=== PATIENT | male | born 1945 | race Caucasian/White ===

== ENCOUNTER 2017-09-06 04:40 | Emergency (ER) | payer OTHER, MEDICARE, SELFPAY ==
[2017-09-06 04:41] VITALS: BP 191/87; PULSE 59; RESP 16; TEMP 36.4; O2SAT 100; BMI 27.1
[2017-09-06] MEDS: cloNIDine HCl 0.1 MG Tablet PO (05:00)
[2017-09-06] MEDS: LORazepam 1 MG Tablet PO (05:00)
[2017-09-06 05:04] VITALS: BP 157/75
[2017-09-06 05:26] VITALS: BP 145/66
--- NOTE | 2017-09-06 05:41 | ED.VISSUMM ---
- ER Visit Summary Date of Service: 09/06/17 Chief Complaint: [] Anxiety History of Present Illness: The patient is a 72 M [] complaining of anxiety/panic attack. Patient reports this is his third or fourth panic attack in the last 18 years. He reports he is a [place] . He reports taking hydroxyzine with mild relief. He is here for anxiolysis. He denies chest pain or shortness of breath. No other complaints at this time. Physical Examination: [] Cardiovascular exam is regular rate and rhythm. Lungs are clear to auscultation. Abdomen is soft and nontender. Test Results: [] None. Emergency Department Course and Treatment: [] Patient given 1 mg orally of Ativan and 0.1 mg orally of clonidine for elevated blood pressure. On serial exam approximately 1 hour later patient felt improvement of symptoms and has improved blood pressure. Patient was amenable to discharge. Treatment Plan: [] Follow-up with PCP. Disposition: [] Discharge, stable. Impression: [] Anxiety attack This note was generated with [employer] dictation software. It may contain incorrect words, spelling, and punctuation that were not noted in review of the chart prior to signing ED Disposition - Plan for ED Patient: Disposition: Home or Assisted Living Chief Complaint: Anxiety Instructions: ED Panic Attack Referrals: Jos Moreno III, MD [Primary Care Provider] -
--- NOTE | 2017-09-06 05:44 | ED.DCSUM_ITS ---
- ER Visit Summary Date of Service: 09/06/17 Chief Complaint: [] Anxiety History of Present Illness: The patient is a 72 M [] complaining of anxiety/ panic attack. Patient reports this is his third or fourth panic attack in the last 18 years. He reports he is a [place] . He reports taking hydroxyzine with mild relief. He is here for anxiolysis. He denies chest pain or shortness of breath. No other complaints at this time. Physical Examination: [] Cardiovascular exam is regular rate and rhythm. Lungs are clear to auscultation. Abdomen is soft and nontender. Test Results: [] None. Emergency Department Course and Treatment: [] Patient given 1 mg orally of Ativan and 0.1 mg orally of clonidine for elevated blood pressure. On serial exam approximately 1 hour later patient felt improvement of symptoms and has improved blood pressure. Patient was amenable to discharge. Treatment Plan: [] Follow-up with PCP. Disposition: [] Discharge, stable. Impression: [] Anxiety attack This note was generated with [employer] dictation software. It may contain incorrect words, spelling, and punctuation that were not noted in review of the chart prior to signing ED Disposition - Plan for ED Patient: Disposition: Home or Assisted Living Chief Complaint: Anxiety Instructions: ED Panic Attack Referrals: Jos Moreno III, MD [Primary Care Provider] -
[2017-09-06 06:07] VITALS: BP 126/81; PULSE 76; RESP 16; O2SAT 97
== END 2017-09-06 06:22 | disposition home or self-care (01) ==
PROVIDERS: Emergency Provider Emergency Medicine; Family Provider Family Medicine; PCP Family Medicine
DX: F41.0 Panic disorder [episodic paroxysmal anxiety] (principal); I10 Essential (primary) hypertension; E11.9 Type 2 diabetes mellitus without complications
CPT/HCPCS: 99283

== ENCOUNTER 2017-09-17 06:18 | Day surgery (SDC) | payer MEDICARE, SELFPAY ==
[2017-09-17] VITALS (7 sets, daily range): BP systolic 88–164; BP diastolic 44–84; PULSE 70–81; RESP 16; TEMP 36.4–36.9; O2SAT 96–99; BMI 26.6
[2017-09-17 07:10] LABS: Bedside Glucose 115 mg/dL (70-110)
--- NOTE | 2017-09-17 07:47 | HP.PCM_ITS ---
Problem List (1) Encounter for screening for malignant neoplasm of colon Status: Acute History of Present Illness Date of Admission: 09/17/17 The patient is a 72 year old M who presents for screening colonoscopy. Past Medical History Allergies cephalexin monohydrate [From Keflex] Allergy (Verified 09/15/17 13:34) Unknown Home Medications: Ambulatory Orders Medication Instructions Recorded Allopurinol [Zyloprim] 150 mg PO DAILY 03/15/15 Aspirin [Aspirin, Baby] 81 mg PO DAILY@0800 03/15/15 Hydrochlorothiazide [Hctz] 12.5 mg PO DAILY 03/15/15 Hydroxyzine HCl 25 mg PO BID PRN 03/15/15 Lisinopril [Zestril] 40 mg PO DAILY 03/15/15 Lorazepam [Ativan] 0.5 mg PO TID PRN PRN #20 tablet 03/15/15 Metformin HCl [Glucophage] 500 mg PO BIDCM 03/15/15 [place]-3 Fatty Acids/Fish Oil [Fish 1 each PO DAILY 03/15/15 Oil 1,000 mg Capsule] Omeprazole [Prilosec] 20 mg PO DAILY 03/15/15 Amlodipine [Norvasc] 5 mg PO DAILY 09/15/17 Doxazosin Mesylate [Cardura] 2 mg PO QHS 09/15/17 Pravastatin Sodium 80 mg PO QHS 09/15/17 Smoking Status: Former smoker - *Family History Maternal History Items: No pertinent history Review of Systems Gastrointestinal: Denies: Abdominal Pain, Constipation, Diarrhea, Hematemesis, Nausea, Melena, Vomiting VTE Information - Inpt Only VTE Present on Admission: No VTE Mechan Device Prophylaxis: None VTE Pharm Prophylaxis ordered?: No Reason prophylaxis not ordered:: Treatment Not Indicated Patient Problems: Active and Suspected Problems Encounter for screening for malignant neoplasm of colon (Acute) - Physical Exam Lungs: Clear to auscultation Cardiovascular: Regular rate, Regular Rhythm, No murmurs Abdomen: Bowel Sounds Present, Soft, Non Tender, Non-Distended Vital Signs Temp Pulse Resp BP Pulse Ox 97.5 F L 81 16 164/84 H 96 09/17/17 06:52 09/17/17 06:52 09/17/17 06:52 09/17/17 06:52 09/17/17 06:52 Oxygen Delivery Method Room Air Weight: 160 lb 7.944 oz Body Mass Index (BMI) 26.6 POC Glucose 09/17/17 07:02 POC Glucose 115 H Assessment/Plan Active and Suspected Problems Encounter for screening for malignant neoplasm of colon (Acute) I plan is perform a colonoscopy.
--- NOTE | 2017-09-17 07:47 | PCM.OPRPT ---
Problem List (1) Encounter for screening for malignant neoplasm of colon Status: Acute Report of Operation Date of Procedure: 09/17/17 Pre-Operative Diagnosis: Z12.11 screening colonoscopy Post-Operative Diagnosis: Same Surgery/Procedure Performed:: 54518 colonoscopy Type of Anesthesia:: MAC Anesthesiologist: Ed Moore Description of Procedure: Patient was brought into the endoscopy suite placed in the left lateral decubitus position. The scope was inserted into the rectum.The scope was directed through the sigmoid colon, descending colon, transverse colon, ascending colon, to the cecum. Operative findings: #1 cecum: Normal appearance no mass lesions normal ileocecal valve. 2. Ascending colon: Normal appearance no mass lesions. 3. Transverse colon: Normal appearance no mass lesions. 4. Descending colon: Normal appearance no mass lesions. 5. Sigmoid colon: Normal appearance no mass lesion minimal diverticular disease identified 6. Rectum: Normal appearance no mass lesion retroflexion did not reveal any hemorrhoids. Scope was withdrawn digital rectal exam was performed showing a smooth prostate with no nodules. Patient will need to have another colonoscopy in 10 years providing he has no family history of colon cancer in the near future. - Admit VTE Documentation VTE Present on Admission: No VTE Mechan Device Prophylaxis: None VTE Pharm Prophylaxis ordered?: No Reason prophylaxis not ordered:: Treatment Not Indicated
== END 2017-09-17 08:42 | disposition home or self-care (01) ==
LOC: EN 06:18 → AC 06:21
PROVIDERS: Family Provider Family Medicine; PCP Family Medicine; Visit Provider Surgery
PROC: 0DJD8ZZ Inspection of Lower Intestinal Tract, Via Natural or Artificial Opening Endoscopic (ICD-10-PCS; CPT 45378; principal; 2017-09-17 07:25)
DX: Z12.11 Encounter for screening for malignant neoplasm of colon (principal); Z87.891 Personal history of nicotine dependence; E11.9 Type 2 diabetes mellitus without complications
CPT/HCPCS: G0121; 82962; J7120; J1610

== ENCOUNTER 2017-12-19 19:29 | Emergency (ER) | payer MEDICARE, OTHER, SELFPAY ==
[2017-12-19 19:30] VITALS: BP 172/96; PULSE 96; RESP 18; TEMP 36.9; O2SAT 97; BMI 25.7
--- NOTE | 2017-12-19 22:27 | ED.VISSUMM ---
- ER Visit Summary Date of Service: 12/19/17 Chief Complaint: Skin infection History of Present Illness: The patient is a 72 M who noted soreness to his penis approximately 1 week ago. He was seen by his PCPs office on the with mild pain and erythema. He was started on Bactroban ointment and Bactrim. Patient presents tonight concerned that the area is more swollen. He reports an infection on the skin of his penis approximate 11 years ago that required admission and IV antibiotics. Patient states he was even sent home with a PICC line and IV antibiotics at home. He wanted to be sure the infection did not spread to that extent again. He has not had fever, chills, or sweats. He otherwise feels well. He has no dysuria. Physical Examination: On arrival blood pressure is 172/96, other vitals are normal. Patient sitting upright in bed no acute distress. He is nontoxic appearing. Head neck examination is unremarkable. Heart is regular rate and rhythm. Lung sounds are clear. Abdomen is soft nontender. examination was mild erythema and minimal edema over the distal shaft of the penis. There are a few small blisterlike lesions noted. There is no drainage. There is no involvement of the urethral orifice. Scrotum is nontender with no edema. Test Results: [] Emergency Department Course and Treatment: I did review prior notes from his admission in 2005. At that time per documentation patient had MRSA and Enterococcus faecalis to the groin, scrotum, penis cellulitis, and balanitis. Following IV antibiotics in the hospital patient was treated with Cubicin IV at home along with p.o. Diflucan. Patient states a culture of the wound was obtained at the [facility] earlier this week. I was able to look up those results and patient had HSV and varicella testing done, but no wound culture for bacterial infection. Wound culture was obtained and will be sent to the lab. At this time patient will continue his Bactrim. He will be given a prescription for 5 days of Diflucan as well as Augmentin for better enterococcus coverage. We will await culture results. Patient is encouraged to return if his symptoms worsen in any way. He is referred to Dr. Love for follow-up. Treatment Plan: [] Disposition: Discharge Impression: Balanitis This note was generated with [employer]comation software. It may contain incorrect words, spelling, and punctuation that were not noted in review of the chart prior to signing ED Disposition - Plan for ED Patient: Disposition: Home or Assisted Living Chief Complaint: Cellulitis Instructions: ED Balanitis Prescriptions: Amox/Clavulanate Tablet [Augmentin Tablet] 875 mg PO Q12H #20 tablet Fluconazole [Diflucan] 100 mg PO DAILY #5 tablet Referrals: Jos Moreno III, MD [Primary Care Provider] - Mario Love MD [STAFF PHYSICIAN] - 3-5 Days if not improving
[2017-12-19] MEDS: Fluconazole 100 MG Tablet PO (22:33)
[2017-12-19] MEDS: Amox/Clavulanate 875 MG Tablet PO (22:33)
[2017-12-19 22:34] VITALS: BP 126/77; PULSE 67; RESP 18; O2SAT 99
== END 2017-12-19 22:35 | disposition home or self-care (01) ==
PROVIDERS: Emergency Provider Emergency Medicine; Family Provider Family Medicine; PCP Family Medicine
DX: N48.1 Balanitis (principal); E11.9 Type 2 diabetes mellitus without complications; I10 Essential (primary) hypertension; E78.00 Pure hypercholesterolemia, unspecified; K21.9 Gastro-esophageal reflux disease without esophagitis; Z87.891 Personal history of nicotine dependence; Z86.14 Personal history of Methicillin resistant Staphylococcus aureus infection
CPT/HCPCS: 87070; 87205; 99283

== ENCOUNTER 2018-12-31 22:00 | Emergency (ER) | payer MEDICARE, OTHER, SELFPAY ==
[2018-12-31 22:01] VITALS: BP 147/92; PULSE 94; RESP 16; TEMP 36.8; O2SAT 95; BMI 26.6
[2018-12-31 22:35] LABS: Bacteria 0 SEEN /hpf (None Seen); Mucous, Urine 0 SEEN /hpf (<or=2+); Squamous Epithelial Cells - UA 0 SEEN /hpf (0-5)
[2018-12-31 22:42] LABS: Color, Urine SEE COMMENT BELOW (Yellow); Glucose, Dipstick Normal (Normal); Ketone-Dipstick Negative (Negative); Leukocyte Esterase-Dipstick 25 /ul (Negative); Nitrite-Dipstick Negative (Negative); Occult Blood-Urine 250 /ul (Negative); Protein-Dipstick 15 mg/dl (Negative); Urine Bilirubin Dipstick Negative (Negative); Urine Clarity Sl. Cloudy (Clear); Urine Urobilinogen Normal (Normal); Urine pH 6.5 (5.0 - 8.0)
[2018-12-31 22:53] LABS: Red Blood Cells-Urine > 100 SEEN /hpf (0-5); White Blood Cells 0-5 SEEN /hpf (0-5)
--- NOTE | 2018-12-31 23:01 | ED.VIS.GEN ---
History of Present Illness Chief Complaint: Complaint Narrative: Patient is a 73-year-old male who presents with hematuria. This has been intermittent for about a week and a half. He initially just noted dark discoloration in his urine when initiating urination. This then improved for a few days. He then had gross hematuria tonight. No clots. No obstruction/retention is able to empty his bladder without difficulty. He denies any pain, dysuria, frequency. He is on a baby aspirin but no other anticoagulation. Past Medical History - Allergies and Home Meds Allergies/Adverse Reactions: Allergies cephalexin monohydrate [From Keflex] Allergy (Verified 12/31/18 22:04) Unknown Primary Care Physician: Jos Moreno III, MD [Primary Care Provider] - Past Medical History: - - Diabetes, hypertension, hyperlipidemia, anxiety Smoking Status: Former smoker - Family History Maternal Family History: Reports: No pertinent history Review of Systems All systems negative except as indicated Physical Exam Vital Signs/Narrative: Vital Signs Temp Pulse Resp BP Pulse Ox 12/31/18 22:01 98.3 F 94 16 147/92 H 95 General: Well nourished Head: Normocephalic Eyes: EOMI ENT: Moist mucous membranes Neck: Supple Cardiovascular: Regular rate Respiratory: No distress Abdomen: Soft, Nontender, Nondistended Skin: Normal color Neurological: Alert Psychological: Normal affect Diagnostic/Tx/Re-eval - Medical Decision Making Urinalysis shows blood otherwise normal. The patient is not having clots he is not anticoagulated he is not obstructed or retaining. No indication for further emergent work-up. I discussed he needs to follow-up with urology and likely need cystoscopy to rule out bladder malignancy. [facility] but I also gave the contact information for Dr. Love. Patient discharged. ED Disposition - Plan for ED Patient: Diagnosis: Hematuria Instructions: ED Hematuria Referrals: Jos Moreno III, MD [Primary Care Provider] - Mario Love MD [STAFF PHYSICIAN] -
[2018-12-31 23:21] VITALS: RESP 18
== END 2018-12-31 23:24 | disposition home or self-care (01) ==
LOC: ED 23:22
PROVIDERS: Emergency Provider Emergency Medicine; Family Provider Family Medicine; PCP Family Medicine
DX: R31.0 Gross hematuria (principal); E11.9 Type 2 diabetes mellitus without complications; I10 Essential (primary) hypertension; E78.5 Hyperlipidemia, unspecified; Z87.891 Personal history of nicotine dependence; Z88.1 Allergy status to other antibiotic agents
CPT/HCPCS: 81001; 99282

== ENCOUNTER 2019-03-27 17:50 | Emergency (ER) | payer MEDICARE, OTHER, SELFPAY ==
[2019-03-27 17:52] VITALS: BP 150/71; PULSE 92; RESP 18; TEMP 36.7; O2SAT 95; BMI 27.3
[2019-03-27 18:27] LABS: Bacteria 0 SEEN /hpf (None Seen); Mucous, Urine 0 SEEN /hpf (<or=2+); Squamous Epithelial Cells - UA 0 SEEN /hpf (0-5)
[2019-03-27 18:28] LABS: Color, Urine Yellow (Yellow); Glucose, Dipstick Normal (Normal); Ketone-Dipstick Negative (Negative); Leukocyte Esterase-Dipstick 100 /ul (Negative); Nitrite-Dipstick Negative (Negative); Occult Blood-Urine 250 /ul (Negative); Protein-Dipstick Negative (Negative); Urine Bilirubin Dipstick Negative (Negative); Urine Clarity Clear (Clear); Urine Urobilinogen Normal (Normal)
[2019-03-27 18:36] LABS: Red Blood Cells-Urine 25-50 SEEN /hpf (0-5); White Blood Cells 5-10 SEEN /hpf (0-5)
--- NOTE | 2019-03-27 18:40 | CT_ITS ---
STUDY: CT ABDOMEN AND PELVIS WITHOUT CONTRAST REASON FOR EXAM: Male, 73 years old. Hematuria and urinary burning RADIATION DOSAGE (If Supplied By Facility): CTDIvol = ( 9.13 ) mGy, DLP = ( 446.92 ) mGycm TECHNIQUE: Transaxial images were obtained from the dome of the diaphragm to the symphysis pubis without oral contrast, and without intravenous contrast. Sagittal and coronal images were reconstructed. Individualized dose optimization techniques were used for this CT. COMPARISON: None. FINDINGS: The visualized lung bases are unremarkable. The visualized portions of the heart are within normal limits. Normal liver. The gallbladder is contracted. Normal spleen. Normal pancreas. Normal bilateral adrenal glands. Mild right hydronephrosis. Mild right hydroureter. Air-fluid level within the bladder with some bladder wall thickening. Probably recent instrumentation. Suspicion for acute cystitis. No obstructing stones. There is severe cortical atrophy of the left kidney, consistent with chronic medical renal disease. There is a small hiatal hernia. Normal small intestine. There are multiple colonic diverticula consistent with diverticulosis. The appendix is visualized and appears normal. Significant fecal retention throughout the colon There is diffuse atherosclerotic calcification of the abdominal aorta, without a demonstrated aneurysm. Normal inferior vena cava. Normal retroperitoneum. Circumferential wall thickening with air-fluid level. Recommend correlation for recent instrumentation. Suspicion for acute cystitis. There is enlargement of the prostate gland. There is a bowel containing right inguinal hernia without evidence of obstruction. There is a small nuckle of bowel within the left inguinal hernia as well however, no evidence of obstruction. There are diffuse degenerative changes of the visualized lumbar spine. CT/Abdomen/Pelvis without Cont IMPRESSION: 1. Severe atrophy of the left kidney. Mild right hydronephrosis and right hydroureter. No evidence of obstructing stones. There is circumferential wall thickening of the bladder suggesting acute cystitis. Small air-fluid level in the bladder. Recommend correlation with recent instrumentation 2. Bilateral inguinal hernias containing loops of bowel however, no evidence of obstruction 3. Significant fecal retention throughout the colon Electronically Signed: Yonis Crawford DO at 20:06 EDT Tel , Service support ,
[2019-03-27 20:04] VITALS: BP 117/60; PULSE 76; RESP 12; RESP 18; TEMP 36.7; O2SAT 93; O2SAT 95
--- NOTE | 2019-03-27 20:24 | ED.VISSUMM ---
- ER Visit Summary Date of Service: 03/27/19 Chief Complaint: [Dysuria] History of Present Illness: The patient is a 73 M [presents the emergency department with dysuria today. Patient states that he was admitted recently to the hospital and underwent a bladder scope for hematuria that he had. Patient had a Roberts catheter removed after having one for 3 days. Patient apparently also had developed sepsis. Patient is currently on Bactrim. Does not states that he is urinating frequently and only getting small amounts of urine out. Patient has history of diabetes and hypertension.] Physical Examination: [HEENT-PERRLA, EOMI. Cranial nerves II through XII grossly intact. TMs clear. Mucous membranes moist. No adenopathy. Cardiovascular-regular rate and rhythm without murmur or ectopy Lungs-clear to auscultation, chest wall stable without crepitus or subcu emphysema Abdomen-normoactive bowel sounds, soft area patient has some mild suprapubic tenderness on palpation. There is no rebound, rigidity, or perineal signs. Extremities-intact ?4, normal range of motion, normal pulses, atraumatic] Test Results: [Urinalysis obtained showed 5-10 WBCs and 25-50 RBCs and 100% Estrace. Urine culture was sent. CT flank showed constipation and right hydro-ureter and bilateral inguinal hernias. No kidney stones noted. There was some thickening of the bladder wall and some air within the bladder which raised the question of recent instrumentation and possible cystitis.] After patient initially voided on presentation to the emergency department a bladder scan was performed and he only had 43 cc of urine in his bladder. Emergency Department Course and Treatment: [Patient was given a dose of Azo in the emergency department.] Treatment Plan: [Patient to continue with his Bactrim and I will add Azo to his regimen. Patient advised to follow-up with urology within next 3 to 5 days. Patient advised to return if worsening pain, fever, vomiting, or conditions worsen anyway.] Disposition: [Discharged home stable condition.] Impression: [ dysuria UTI] This note was generated with [employer] software. It may contain incorrect words, spelling, and punctuation that were not noted in review of the chart prior to signing ED Disposition - Plan for ED Patient: Referrals: Jos Moreno III, MD [Primary Care Provider] -
--- NOTE | 2019-03-27 20:27 | ED.DEP ---
ED Disposition - Plan for ED Patient: Instructions: Bladder Infection, Male (Adult) Prescriptions: Phenazopyridine HCl [Pyridium] 200 mg PO BID PRN PRN #10 tab PRN Reason: Pain Prescription Printed Referrals: Mario Love MD [STAFF PHYSICIAN] - 3-5 Days
[2019-03-27] MEDS: Phenazopyridine 95 MG Tablet 190 MG PO (20:35)
[2019-03-27 20:38] VITALS: PULSE 84; O2SAT 16
== END 2019-03-27 20:38 | disposition home or self-care (01) ==
LOC: ED 18:14
PROVIDERS: Emergency Provider Emergency Medicine; Family Provider Family Medicine; PCP Family Medicine
DX: R30.0 Dysuria (principal); N39.0 Urinary tract infection, site not specified; K40.20 Bilateral inguinal hernia, without obstruction or gangrene, not specified as recurrent; I10 Essential (primary) hypertension; E11.9 Type 2 diabetes mellitus without complications
CPT/HCPCS: 74176; 81001; 87086; 99283

== ENCOUNTER → 2019-03-30 17:40 | Outpatient (CLI) | payer MEDICARE, OTHER, SELFPAY ==
[2019-03-27 17:52] VITALS: BMI 27.3
--- NOTE | 2019-03-30 | FLU_PTH ---
PATIENT: JESICA COTA LOC: [facility] U#:[id number] AGE/SX: 79/M ROOM: RE03/30/[address]: Stephanie Jonas : 1945 BED: DIS: SPEC #: [id number] RECD: 03/30/19 14:46 STATUS: MAUDE CHELLY #: [id number] SUE: 03/30/19 00:[address]: Stephanie Jonas DEPT: CYTOLOGY RECD BY: Monica Muñoz ENTERED: 03/31/19 11:09 SP TYPE: Fluid OTHR DR: Dr. Jos Moreno III, MD Stephanie Jonas, MACHINE SOLE LEVELER-C Tissues: Urine Procedures: Special Stain Group II Surgery Specimen Level IV Cytospin Fluid HEADER OPERATION: Not noted PRE-OP DIAGNOSIS: Gross hematuria TISSUE SUBMITTED: Urine for cytology DIAGNOSIS CYTOLOGY Urine for cytology (cytospin): Negative for malignant cells. Acute inflammation. AM:antoinette 04/01/19 CYTOLOGY STUDY Slides are reviewed. CYTOLOGY GROSS Received is 60 ml of virgil hazy fluid labeled with the patient's name and and designated per the requisition as urine. Submitted for cytology preparation. / CC:cc 03/31/19 TC:2 CPT: 47400
[2019-03-30 17:42] LABS: Cytology, Body Fluid / CSF SEE PATHOLOGY REPORT
== END ==
PROVIDERS: Family Provider Family Medicine; PCP Family Medicine; Referring Provider Nurse Practitioner Adult Health
DX: R31.0 Gross hematuria (principal)
CPT/HCPCS: 88108; 88305; 88313

== ENCOUNTER 2019-04-30 09:29 | Emergency (ER) | payer MEDICARE, OTHER, SELFPAY ==
[2019-04-30 09:33] VITALS: BP 148/74; PULSE 89; RESP 17; TEMP 36.5; O2SAT 97; BMI 27.8
--- NOTE | 2019-04-30 09:58 | VDLE_ITS ---
Reason For Study: Pain RIGHT LEFT GSV is normal. GSV is normal. CFV is compressible, spontaneous, phasic, CFV is compressible, spontaneous, phasic, competent and demonstrates normal competent, and demonstrates normal augmentation. augmentation. FV is compressible, spontaneous, phasic, FV is compressible, spontaneous, phasic, competent and demonstrates normal competent and demonstrates normal augmentation. augmentation. POP V is compressible, spontaneous, phasic, POP V is compressible, spontaneous, phasic, competent and demonstrates normal competent and demonstrates normal augmentation. augmentation. T/P Trunk is compressible. T/P Trunk is compressible. PTV is compressible. PTV is compressible. RT PerV is compressible. LT PerV is compressible. Procedure Exam performed portable in ED. A preliminary report was called and/or faxed to [facility]. Interpretation Summary Deep veins of the lower extremities are bilaterally patent and compressible segmentally. There is no evidence of deep vein thrombosis on either side. Valvular competence appears intact within the proximal deep venous systems bilaterally. The great saphenous veins appear bilaterally patent and compressible segmentally. Ordering Physician: Garcia Khoury Referring Physician: SHILPA Moreno M.D. Performed By: Destinee Gr RVT
--- NOTE | 2019-04-30 10:21 | ED.DCSUM_ITS ---
- ER Visit Summary Date of Service: 04/30/19 Chief Complaint: Bilateral calf pain History of Present Illness: The patient is a 73 M with bilateral calf pain that is been intermittent over the last 4 days. Patient states he wakes up in the middle the night with cramping in his lower legs. Patient admits to some light numbness in his right leg that resolved 3 days ago. Patient called the nurse at the [facility] who told him to come to the emergency department for possible blood clots in his leg. Patient denies any chest pain or palpitations. Patient denies any shortness of breath. Patient denies any nausea or vomiting. Physical Examination: Vital signs are stable. Patient is afebrile. Patient is in no acute distress. Oral mucosa is pink and moist. Neck is supple. Trachea is midline. There is no JVD noted. Heart was regular rate and rhythm. Lungs are clear and equal bilaterally. Abdomen is soft and nontender. Musculoskeletal exam does not reveal any calf tenderness. There is good range of motion of the lower extremities bilaterally. There is no edema noted. Pedal pulses are equal bilaterally. There are no sensory deficits noted. Test Results: CBC was normal. Basic metabolic profile showed a slightly elevated creatinine of 1.76 and a BUN of 33. There are no prior results to compare to. Venous duplex of the lower extremities was obtained. There is no evidence of DVT bilaterally. Emergency Department Course and Treatment: Patient was given IV fluids here. Patient was instructed to drink plenty of fluids. Patient was instructed to follow-up with his primary care physician in 3 to 5 days. Patient understood and was agreeable with the plan. All questions were answered. Disposition: Discharge home Impression: 1. Bilateral leg pain 2. Dehydration This note was generated with [employer] dictation software. It may contain incorrect words, spelling, and punctuation that were not noted in review of the chart prior to signing ED Disposition - Plan for ED Patient: Disposition: Home or Assisted Living Diagnosis: Bilateral leg pain, Dehydration Instructions: DEHYDRATION (6y-Adult), Muscle Spasm Referrals: [facility] [Primary Care Provider] - 3-5 Days
[2019-04-30 10:35] LABS: Absolute Lymphocyte Count 1.81 X10^3/uL (0.83-4.51); Absolute Neutrophil Count 4.8 X10^3/uL (2.0-7.7); Basophil# 0.04 X10^3/uL; Basophil% 0.5 % (0-1); Eosinophil# 0.17 X10^3/uL; Eosinophils% 2.2 % (0-5); Lymphocyte # 1.81 X10^3/ul (4.0); Lymphocyte % 23.7 % (19-41); Mean Corp Hgb Conc 34.1 g/dL (32-36); Mean Corpuscular Hgb 32.1 pg (27.0-32.0); Mean Platelet Vol. 9.9 fl (6.2-12.0); Monocyte# 0.79 X10^3/uL; Monocyte% 10.3 % (0-10); NRBC Flagged by Analyzer 0 % (0-5); Neutrophil # 4.78 X10^3/uL (2.7-7.7); Neutrophil % 62.5 % (47-70); Platelet Count 170 K/mm3 (150-450); RBC Distribution Width SD 41.6 fl (35.1-43.9); Red Blood Count 4.36 M/mm3 (4.6-6.2); White Blood Count 7.7 K/mm3 (4.4-11.0)
[2019-04-30 10:44] LABS: Prothrombin Time (Protime)PT. 13.3 SECONDS (11.7-14.9)
[2019-04-30 10:45] LABS: Partial Thromboplast Time 25.6 Seconds (24.1-36.2)
[2019-04-30 10:49] LABS: Anion Gap 6 (5-15); BUN 33 mg/dL (7-18); BUN/Creat Ratio 18.8 RATIO (10-20); Calcium,Total 9.1 mg/dL (8.5-10.1); Chloride 106 mmol/L (98-107); Creatinine, Serum 1.76 mg/dL (0.70-1.30); EST Glomerular Filtration Rate 41 mL/min (>60); Est Glom Filt Rate - Afr Amer 49 mL/min (>60); Estimated Creatinine Clearance 32.52 ml/min; Glucose 165 mg/dL (74-106); Potassium 4.2 mmol/L (3.5-5.1); Sodium Level 139 mmol/L (136-145)
[2019-04-30] MEDS: 0.9% Normal Saline 1,000 ML 1000 ML IV (11:30)
== END 2019-04-30 12:53 | disposition home or self-care (01) ==
LOC: ED 11:23
PROVIDERS: Emergency Provider Emergency Medicine
DX: M79.662 Pain in left lower leg (principal); M79.661 Pain in right lower leg; E86.0 Dehydration; I10 Essential (primary) hypertension; E11.9 Type 2 diabetes mellitus without complications; Z79.84 Long term (current) use of oral hypoglycemic drugs; Z79.82 Long term (current) use of aspirin; Z79.899 Other long term (current) drug therapy
CPT/HCPCS: 80048; 85025; 85610; 85730; 93970; 96360; 99284; J7030; A4216

== ENCOUNTER 2020-05-04 08:11 | Emergency (ER) | payer OTHER, MEDICARE, SELFPAY ==
[2020-05-04 08:12] VITALS: BP 181/88; PULSE 108; RESP 18; TEMP 36.4; O2SAT 99; BMI 26.6
--- NOTE | 2020-05-04 09:19 | ED.DEP ---
ED Disposition - Plan for ED Patient: Instructions: ED Cellulitis Prescriptions: Amox/Clavulanate Tablet [Augmentin Tablet] 875 mg PO Q12H #20 tab Prescription Printed Fluconazole [Diflucan] 100 mg PO DAILY #7 tab Prescription Printed [facility] - 3-5 Days
[2020-05-04 09:26] VITALS: BP 108/66; PULSE 59; RESP 16; O2SAT 97
--- NOTE | 2020-05-06 21:39 | ED.DCSUM_ITS ---
- ER Visit Summary Date of Service: 05/06/20 Chief Complaint: [Redness and swelling to penis] History of Present Illness: The patient is a 74 M [presents to the emergency department with symptoms that started yesterday. Patient noticed increased swelling and some faint redness to the penis and he has history of same in the past. Patient states that last time this happened he was given a prescription for Augmentin and fluconazole which resolved the situation. Patient is circumcised. Patient does have history of staph. Patient has history of diabetes, hypertension, high cholesterol, and gout.] Physical Examination: [HEENT-PERRLA, EOMI. Cranial nerves II through XII grossly intact. TMs clear. Mucous membranes moist. No adenopathy. Cardiovascular-regular rate and rhythm without murmur or ectopy Lungs-clear to auscultation, chest wall stable without crepitus or subcu emphysema Abdomen-normoactive bowel sounds, soft, nontender, no rebound or rigidity, no peritoneal signs. exam-patient is a circumcised male. He is got some faint erythema to the shaft of the penis on the volar aspect. No abscess is noted. No drainage from the meatus noted. Testicles are nontender with a normal lie and normal cremasteric reflex. Extremities-intact ?4, normal range of motion, normal pulses, atraumatic] Test Results: [None indicated] Emergency Department Course and Treatment: [] Treatment Plan: [Patient will be given a prescription for Augmentin and fluconazole. Patient advised to follow-up with urologist.] Disposition: [Discharged home in stable condition] Impression: [Cellulitis to penis] This note was generated with [employer] dictation software. It may contain incorrect words, spelling, and punctuation that were not noted in review of the chart prior to signing ED Disposition - Plan for ED Patient: Disposition: Home or Assisted Living Instructions: ED Cellulitis Prescriptions: Amox/Clavulanate Tablet [Augmentin Tablet] 875 mg PO Q12H #20 tab Prescription Printed Fluconazole [Diflucan] 100 mg PO DAILY #7 tab Prescription Printed [facility] [[facility]] - 3-5 Days
== END 2020-05-04 09:26 | disposition home or self-care (01) ==
PROVIDERS: Emergency Provider Emergency Medicine
DX: N48.22 Cellulitis of corpus cavernosum and penis (principal); I10 Essential (primary) hypertension; E11.9 Type 2 diabetes mellitus without complications; E78.00 Pure hypercholesterolemia, unspecified; Z79.82 Long term (current) use of aspirin; Z79.84 Long term (current) use of oral hypoglycemic drugs; Z79.899 Other long term (current) drug therapy
CPT/HCPCS: 99282

== ENCOUNTER → 2020-06-27 16:13 | Outpatient (CLI) | payer MEDICARE, OTHER, SELFPAY | PROVIDERS: Referring Provider Nurse Practitioner Adult Health; Visit Provider Nurse Practitioner Adult Health | DX: R35.0 Frequency of micturition (principal) | CPT/HCPCS: 87086 ==

== ENCOUNTER → 2020-07-18 13:36 | Outpatient (CLI) | payer MEDICARE, SELFPAY ==
--- NOTE | 2020-07-18 13:39 | CT_ITS ---
STUDY: CT ABDOMEN AND PELVIS WITHOUT CONTRAST REASON FOR EXAM: Male, 74 years old. UTI SYMPTOMS, CLEARED UP AFTER ANTIBIOTICS RADIATION DOSAGE (If Supplied By Facility): CTDIvol = ( 9.76 ) mGy, DLP = ( 473.02 ) mGycm TECHNIQUE: Transaxial images were obtained from the dome of the diaphragm to the symphysis pubis without oral contrast, and without intravenous contrast. Sagittal and coronal images were reconstructed. Individualized dose optimization techniques were used for this CT. COMPARISON: None. FINDINGS: The visualized lung bases are unremarkable. The visualized portions of the heart are within normal limits. Normal liver. Normal gallbladder and extrahepatic biliary system. Normal spleen. Normal pancreas. Normal bilateral adrenal glands. Normal right kidney. There is severe cortical atrophy of the left kidney, consistent with chronic medical renal disease. Normal visualized stomach. Normal small intestine. There are multiple colonic diverticula consistent with diverticulosis. The appendix is visualized and appears normal. There is diffuse atherosclerotic calcification of the abdominal aorta, without a demonstrated aneurysm. Normal inferior vena cava. Normal retroperitoneum. Normal urinary bladder. There are prostatic calcifications. Moderate sized hiatal hernia containing a right-sided bladder diverticulum. Moderate-sized left inguinal hernia containing fat. There are diffuse degenerative changes of the visualized lumbar spine. CT/Abdomen/Pelvis without Cont IMPRESSION: Moderate sized bilateral inguinal hernias. The right inguinal hernia contains a portion of the bladder. The left inguinal hernia contains fat. Marked atrophy of the left kidney. Electronically Signed: Logan Diego, at 14:28 EST , Service support ,
== END ==
PROVIDERS: Referring Provider Nurse Practitioner Adult Health; Visit Provider Nurse Practitioner Adult Health
DX: N20.0 Calculus of kidney (principal)
CPT/HCPCS: 74176

== ENCOUNTER 2021-03-12 10:28 | Emergency (ER) | payer OTHER, MEDICARE, SELFPAY ==
[2021-03-12 10:29] VITALS: BP 169/97; PULSE 92; RESP 14; TEMP 36.7; O2SAT 97; BMI 28.0
--- NOTE | 2021-03-12 11:18 | EX.ED.DYSGE1 ---
HPI History of Present Illness Chief Complaint: Rash Narrative Narrative: 75-year-old male presenting with redness and rash on his penis. He states this started several days ago. He states he had a painful sore on his penis and redness surrounding this. Denies penile discharge. Denies fever. He states he had this in the past associated with yeast infections. Prior similar symptoms: Yes Recent Illness/Hospitalization: No PFSH PFS Medical History (Updated 03/12/21 @ 11:[address] Dorota Olsen MD) Anxiety Diabetes GERD (gastroesophageal reflux disease) Hypertension Kidney disease Home Medications allopurinol 300 mg PO DAILY 03/15/15 [History Last Taken Unknown] aspirin 81 mg PO DAILY@0800 03/15/15 [History Last Taken 09/11/17] hydrochlorothiazide 12.5 mg PO DAILY 03/15/15 [History Last Taken Unknown] lisinopril 40 mg PO DAILY 03/15/15 [History Last Taken 09/17/17 06:00 40 MG] lorazepam 0.5 mg PO TID PRN PRN #20 tab 03/15/15 [Rx Last Taken Unknown] metformin 500 mg PO DAILY 03/15/15 [History Last Taken Unknown] omeprazole 20 mg PO BID 03/15/15 [History Last Taken 09/17/17 06:00 20 MG] amlodipine 5 mg PO DAILY 09/15/17 [History Last Taken 09/17/17 06:00 5 MG] doxazosin [Cardura] 4 mg PO QHS 09/15/17 [History Last Taken Unknown] gabapentin 300 mg PO BIDCM 03/27/19 [History Last Taken Unknown] atorvastatin 10 mg PO QHS 03/12/21 [History Last Taken Unknown] clotrimazole 1 applic TOPICAL BID 14 Days g 03/12/21 [Rx Last Taken Unknown] desonide 1 applic TOPICAL BID 03/12/21 [History Last Taken Unknown] famotidine 20 mg PO DAILY 03/12/21 [History Last Taken Unknown] hydroxyzine pamoate 25 mg PO BID PRN 03/12/21 [History Last Taken Unknown] metronidazole 1 applic TOPICAL DAILY 03/12/21 [History Last Taken Unknown] Allergy/AdvReac Type Severity Reaction Status Date / Time cephalexin monohydrate Allergy Unknown Verified 03/12/21 10:29 [From Keflex] ciprofloxacin AdvReac Pain in Verified 03/12/21 10:29 joints Surgical History (Updated 03/12/21 @ 10:45 by Armida Faith) H/O hernia repair Hx of tonsillectomy Social History Smoking Status: Former smoker ROS ROS ED Constitutional Constitutional ED: Denies fever(s) Eyes Eyes: Denies change in vision ENT ENT ED: Denies rhinorrhea or sore throat Cardiovascular Cardiovascular: Denies chest pain or palpitations Respiratory/Chest Respiratory/Chest: Denies cough or dyspnea Gastrointestinal Gastrointestinal: Denies abdominal pain, diarrhea, nausea or vomiting Genitourinary Genitourinary ED: Denies dysuria Musculoskeletal Musculoskeletal: Denies myalgias Integumentary Reports rash Neurologic Neurologic: Denies headache(s) Psychiatric Psychiatric: Denies suicidal thoughts EXAM Physical Exam Const Vital Signs: 03/12/21 10:29 Temperature 98.1 F Temperature Source Temporal Pulse Rate 92 Respiratory Rate 14 Blood Pressure 169/97 H Blood Pressure Mean 121 Pulse Ox 97 Oxygen Delivery Method Room Air Positive well nourished and well developed General Appearance ED: well developed HEENT Reports normocephalic and head/scalp atraumatic Eyes PERRL and EOMs intact bilaterally Neck supple General: Negative for tenderness Chest Wall inspection of chest normal Resp normal respiratory effort and clear to auscultation bilaterally Cardio regular rate and regular rhythm GI non-tender and non-distended Palpation: soft; Negative for guarding or rebound tenderness present no CVA tenderness Narrative: Mild erythematous area of penile shaft with one nonvesicular lesion. No ulcerations or painless lesions. No penile discharge. No lymphadenopathy. Extremity normal to inspection Neuro oriented x3 Sensorium / Orientation: alert Psych mental status grossly normal MDM MDM MDM Narrative Medical decision making narrative: Patient was given clotrimazole cream. He will follow-up with urology. Advised return to ED for worsening complaints. Discharge Plan Triage Chief Complaint: Rash ED Provider: Dorota Olsen Dx/Rx/DC Orders Clinical Impression: Balanitis Instructions: ED Balanitis Prescriptions: New clotrimazole 1 % cream 1 applic topical BID 14 Days RF: 0 No Action metformin 500 MG tablet 500 mg PO DAILY RF: 0 omeprazole 20 MG capsule 20 mg PO BID RF: 0 aspirin 81 MG tablet,chewable 81 mg PO DAILY@0800 RF: 0 allopurinol 300 MG tablet 300 mg PO DAILY RF: 0 hydrochlorothiazide 25 MG tablet 12.5 mg PO DAILY RF: 0 lisinopril 40 MG tablet 40 mg PO DAILY RF: 0 lorazepam 0.5 MG tablet 0.5 mg PO TID PRN PRN (Reason: Anxiety) Qty: 20 RF: 0 amlodipine 5 MG tablet 5 mg PO DAILY RF: 0 doxazosin [Cardura] 2 MG tablet 4 mg PO QHS RF: 0 gabapentin 300 MG capsule 300 mg PO BIDCM RF: 0 desonide 0.05 % Cream 1 applic TOPICAL BID RF: 0 atorvastatin 10 mg Tablet 10 mg PO QHS RF: 0 famotidine 20 mg Tablet 20 mg PO DAILY RF: 0 metronidazole 0.75 % Cream 1 applic TOPICAL DAILY RF: 0 hydroxyzine pamoate 25 mg Capsule 25 mg PO BID PRN (Reason: Anxiety) RF: 0 [facility] Care Provider: [facility] Referrals: Mario Love MD [STAFF PHYSICIAN] - [facility] [Primary Care Provider] - Disposition Disposition: Home, Self Care
[2021-03-12 11:27] VITALS: RESP 16
--- NOTE | 2021-03-12 11:28 | ED.RN ---
REVIEWED D/C INSTRUCTIONS, FOLLOW UP CARE, PRESCRIPTION, AND S/S THAT WOULD WARRANT A RETURN TO THE ED WITH PT. PT VERBALIZED AN UNDERSTANDING AND DENIES FURTHER QUESTIONS FOR THIS RN. PT SKIN P/W/D, RESP EVEN AND UNLABORED, PT A&O X 3, NO DISTRESS NOTED. PT AMBULATED OUT OF ED, GAIT STEADY.
== END 2021-03-12 11:29 | disposition home or self-care (01) ==
PROVIDERS: Emergency Provider Emergency Medicine
DX: N48.1 Balanitis (principal); E11.9 Type 2 diabetes mellitus without complications; F41.9 Anxiety disorder, unspecified; I10 Essential (primary) hypertension; K21.9 Gastro-esophageal reflux disease without esophagitis; Z79.82 Long term (current) use of aspirin; Z79.84 Long term (current) use of oral hypoglycemic drugs; Z79.899 Other long term (current) drug therapy; Z87.891 Personal history of nicotine dependence
CPT/HCPCS: 99282

== ENCOUNTER → 2021-04-20 12:41 | Outpatient (CLI) | payer OTHER, MEDICARE, SELFPAY ==
--- NOTE | 2021-04-20 12:44 | VDLE_ITS ---
Reason For Study: Pain in left leg RIGHT LEFT CFV is compressible, spontaneous, phasic, GSV is normal. competent and demonstrates normal CFV is compressible, spontaneous, phasic, augmentation. competent, and demonstrates normal Procedure augmentation. This is a venous duplex using B-mode, color FV is compressible, spontaneous, phasic, flow and spectral Doppler. competent and demonstrates normal Exam performed in department. augmentation. A preliminary report was called and/or faxed POP V is compressible, spontaneous, phasic, to Dr. Gonzalez. Instructed to take patient to ED competent and demonstrates normal for treatment. augmentation. T/P Trunk is compressible. PTV is compressible. LT PerV is compressible. Acute deep vein thrombosis is noted in the left soleus vein. VL/Venous Duplex US, Unilateral Interpretation Summary Acute deep vein thrombosis is noted in the left soleus vein. The remainder of t he left lower extremity deep venous system is patent and compressible. Valvular competence ap pears intact within the proximal deep venous system on the left . The left great saphenous vein [place] ears patent and compressible segmentally. Ordering Physician: Paulo Gonzalez Referring Physician: [place], [place] Performed By: Destinee Gr RVT
== END ==
DX: M79.605 Pain in left leg (principal)
CPT/HCPCS: 93971

== ENCOUNTER 2021-04-20 13:27 | Emergency (ER) | payer OTHER, MEDICARE, SELFPAY ==
[2021-04-20 13:35] VITALS: BP 168/111; PULSE 82; RESP 18; TEMP 36.7; O2SAT 95; BMI 28.3
== END 2021-04-20 14:00 ==
LOC: ED 14:15
DX: I82.402 Acute embolism and thrombosis of unspecified deep veins of left lower extremity (principal)

== ENCOUNTER → 2022-04-15 | Outpatient (CLI) | payer MEDICARE, SELFPAY | END | disposition home or self-care (01) | LOC: LAB 13:15 | PROVIDERS: Referring Provider Urology; Visit Provider Urology | DX: R35.0 Frequency of micturition (principal) | CPT/HCPCS: 87086 ==

== ENCOUNTER 2022-11-08 23:29 | Emergency (ER) | payer OTHER, SELFPAY ==
[2022-11-08 23:30] VITALS: BP 185/77; PULSE 82; RESP 16; TEMP 36.7; O2SAT 95; BMI 27.7
--- NOTE | 2022-11-08 23:41 | ED.RN ---
PT STATES HICCUPS STARTED AROUND 1800 AND HAVE BEEN CONSTANT SINCE.
[2022-11-09 02:23] VITALS: BP 168/79; PULSE 75; RESP 18; O2SAT 96
[2022-11-09] MEDS: ChlorproMAZINE 50 MG/2 ML Ampul 25 MG IV (02:24)
[2022-11-09 02:51] VITALS: BP 161/85
[2022-11-09 03:24] VITALS: BP 160/76; PULSE 84; RESP 16; O2SAT 95
--- NOTE | 2022-11-09 03:37 | EDS_ITS ---
HPI History of Present Illness Chief Complaint: Other, Pain/Inj Narrative Narrative: Patient is a 77-year-old male with past medical history of diabetes hypertension and GERD. He states that this afternoon he developed hiccups. He states that after roughly an hour he was able to get them to subside. He states however then he decided to have something to drink and they began to occur once again. He states he gave it another hour or so to see if you get them resolved but was unable to do so and as he has been hiccuping for approximately 6 to 8 hours without resolution comes in for evaluation. [facility] Medical History (Updated 11/12/22 @ 00:[address] Luis Armando Galeano, ) Anxiety Diabetes GERD (gastroesophageal reflux disease) Hypertension Kidney disease Home Medications allopurinol 300 mg tablet 300 mg PO DAILY 03/15/15 [History Last Taken Unknown] aspirin 81 mg chewable tablet 81 mg PO DAILY@0800 03/15/15 [History Last Taken 09/11/17] hydrochlorothiazide 25 mg tablet 12.5 mg PO DAILY 03/15/15 [History Last Taken Unknown] lisinopril 40 mg tablet 40 mg PO DAILY 03/15/15 [History Last Taken 09/17/17 06:00 40 MG] lorazepam 0.5 mg tablet 0.5 mg PO TID PRN PRN Anxiety #20 tabs 03/15/15 [Rx Last Taken Unknown] metformin 500 mg tablet 500 mg PO DAILY 03/15/15 [History Last Taken Unknown] omeprazole 20 mg capsule,delayed release 20 mg PO BID 03/15/15 [History Last Taken 09/17/17 06:00 20 MG] amlodipine 5 mg tablet 5 mg PO DAILY 09/15/17 [History Last Taken 09/17/17 06:00 5 MG] doxazosin 2 mg tablet (Cardura) 4 mg PO QHS 09/15/17 [History Last Taken Unknown] gabapentin 300 mg capsule 300 mg PO BIDCM 03/27/19 [History Last Taken Unknown] atorvastatin 10 mg tablet 10 mg PO QHS 03/12/21 [History Last Taken Unknown] clotrimazole 1 % topical cream 1 applic topical BID 2 weeks 03/12/21 [Rx Last Taken Unknown] desonide 0.05 % topical cream 1 applic topical BID 03/12/21 [History Last Taken Unknown] famotidine 20 mg tablet 20 mg PO DAILY 03/12/21 [History Last Taken Unknown] hydroxyzine pamoate 25 mg capsule 25 mg PO BID PRN Anxiety 03/12/21 [History Last Taken Unknown] metronidazole 0.75 % topical cream 1 applic topical DAILY 03/12/21 [History Last Taken Unknown] Allergy/AdvReac Type Severity Reaction Status Date / Time cephalexin monohydrate Allergy Unknown Verified 11/08/22 23:38 [From Keflex] ciprofloxacin AdvReac Pain in Verified 11/08/22 23:38 joints Surgical History H/O hernia repair Hx of tonsillectomy Social History Smoking Status: Former smoker ROS ROS ED Constitutional Constitutional ED: Denies chills or fever(s) ENT ENT ED: Denies sore throat Cardiovascular Cardiovascular: Denies chest pain Respiratory/Chest Respiratory/Chest: Denies cough or dyspnea Gastrointestinal Gastrointestinal: Reports other Details: Positive hiccups ; Denies abdominal pain, diarrhea, nausea or vomiting Genitourinary Genitourinary ED: Denies dysuria Musculoskeletal Musculoskeletal: Denies myalgias Integumentary Denies rash Neurologic Neurologic: Denies headache(s) Hematologic/Lymphatic Hematologic/Lymphatic: Denies easy bleeding or easy bruising EXAM Physical Exam Const Vital Signs: 11/08/22 23:30 11/08/22 23:38 11/09/22 02:23 Temperature 98.0 F Temperature Source Temporal Pulse Rate 82 75 Respiratory Rate 16 18 Respiratory Effort Normal Non-Labored Respiratory Pattern Normal Blood Pressure 185/77 H 168/79 H Blood Pressure Mean 113 108 Pulse Ox 95 96 Oxygen Delivery Method Room Air Room Air 11/09/22 02:51 11/09/22 03:24 Temperature Temperature Source Pulse Rate 84 Respiratory Rate 16 Respiratory Effort Respiratory Pattern Blood Pressure 161/85 H 160/76 H Blood Pressure Mean 110 104 Pulse Ox 95 Oxygen Delivery Method Room Air Positive well nourished and well developed General Appearance ED: well developed HEENT Reports moist mucous membranes Eyes PERRL and EOMs intact bilaterally Neck supple Resp normal respiratory effort and clear to auscultation bilaterally Cardio regular rate and regular rhythm Rate: other Other Details: Radial pulses are plus 2 out of 4 bilaterally are equal and GI normal to inspection, nondistended, normoactive bowel sounds, non-tender, non- distended and no masses Auscultation: normoactive bowel sounds Palpation: soft Extremity normal to inspection Neuro oriented x3 and CN's II-XII intact bilaterally Sensorium / Orientation: alert Psych mental status grossly normal Skin no rashes or lesions noted MDM MDM MDM Narrative Medical decision making narrative: Patient presented to the ER hypertensive but does have a past medical history of high blood pressure and otherwise vitals are stable. He reported 6 to 8 hours of intractable hiccups without any other symptoms. At this time my concern for acute coronary syndrome abdominal infection biliary colic or aspiration is low and I do not feel there is need for blood work or imaging study. Based on the patient's multiple hours of hiccups I did elect to perform treatment with IV Thorazine. After patient was given this there was resolution of his hiccups and he was watched in the ER for another hour without return of symptoms. Vitals remained stable and therefore he is otherwise safe for discharge. History & Record Review Discussion w/independent historian: Patient Discharge Plan Triage Chief Complaint: Other, Pain/Inj ED Provider: Luis Armando Galeano Dx/Rx/DC Orders Clinical Impression: Intractable hiccups, History of diabetes mellitus, Hypertension Instructions: ED Hiccups Prescriptions: No Action metformin 500 MG tablet 500 mg PO DAILY omeprazole 20 MG capsule 20 mg PO BID aspirin 81 MG tablet,chewable 81 mg PO DAILY@0800 allopurinol 300 MG tablet 300 mg PO DAILY hydrochlorothiazide 25 MG tablet 12.5 mg PO DAILY lisinopril 40 MG tablet 40 mg PO DAILY lorazepam 0.5 MG tablet 0.5 mg PO TID PRN PRN (Reason: Anxiety) Qty: 20 0RF amlodipine 5 MG tablet 5 mg PO DAILY doxazosin [Cardura] 2 MG tablet 4 mg PO QHS gabapentin 300 MG capsule 300 mg PO BIDCM desonide 0.05 % Cream 1 applic TOPICAL BID atorvastatin 10 mg Tablet 10 mg PO QHS famotidine 20 mg Tablet 20 mg PO DAILY metronidazole 0.75 % Cream 1 applic TOPICAL DAILY hydroxyzine pamoate 25 mg Capsule 25 mg PO BID PRN (Reason: Anxiety) clotrimazole 1 % cream 1 applic topical BID 14 Days 0RF [facility] Care Provider: [facility] Referrals: [facility] [Primary Care Provider] - Disposition Disposition: Home, Self Care Discharge Date/Time: 11/09/22 03:48
[2022-11-09 03:46] VITALS: BP 168/73; PULSE 76; RESP 16; O2SAT 98
== END 2022-11-09 03:48 | disposition home or self-care (01) ==
PROVIDERS: Emergency Provider Emergency Medicine; Visit Provider Emergency Medicine
DX: R06.6 Hiccough (principal); E11.9 Type 2 diabetes mellitus without complications; I10 Essential (primary) hypertension; Z87.891 Personal history of nicotine dependence; K21.9 Gastro-esophageal reflux disease without esophagitis; F41.9 Anxiety disorder, unspecified
CPT/HCPCS: 99283; J7050

== ENCOUNTER → 2022-12-09 | Outpatient (CLI) | payer MEDICARE, SELFPAY | END | disposition home or self-care (01) | LOC: LABSPEC 16:12 | PROVIDERS: Referring Provider Urology; Visit Provider Urology | DX: Z87.440 Personal history of urinary (tract) infections (principal) | CPT/HCPCS: 87086 ==

== ENCOUNTER 2023-12-02 18:26 | Emergency (ER) | payer OTHER, SELFPAY ==
[2023-12-02 18:27] VITALS: BP 190/87; PULSE 72; RESP 16; TEMP 36.4; O2SAT 98
[2023-12-02 19:27] VITALS: BP 176/94
--- NOTE | 2023-12-02 19:30 | EDS_ITS ---
HPI History of Present Illness Chief Complaint: Headache [facility] Medical History (Updated 11/17/22 @ 00:02 by Background Brian) Anxiety Diabetes GERD (gastroesophageal reflux disease) Hypertension Kidney disease Home Medications allopurinol 300 mg tablet 300 mg PO DAILY 03/15/15 [History Last Taken Unknown] aspirin 81 mg chewable tablet 81 mg PO DAILY@0800 03/15/15 [History Last Taken 09/11/17] hydrochlorothiazide 25 mg tablet 12.5 mg PO DAILY 03/15/15 [History Last Taken Unknown] lisinopril 40 mg tablet 40 mg PO DAILY 03/15/15 [History Last Taken 09/17/17 06:00 40 MG] lorazepam 0.5 mg tablet 0.5 mg PO TID PRN PRN Anxiety #20 tabs 03/15/15 [Rx Last Taken Unknown] metformin 500 mg tablet 500 mg PO DAILY 03/15/15 [History Last Taken Unknown] omeprazole 20 mg capsule,delayed release 20 mg PO BID 03/15/15 [History Last T [place] 09/17/17 06:00 20 MG] amlodipine 5 mg tablet 5 mg PO DAILY 09/15/17 [History Last Taken 09/17/17 06:00 5 MG] doxazosin 2 mg tablet (Cardura) 4 mg PO QHS 09/15/17 [History Last Taken Unknown] gabapentin 300 mg capsule 300 mg PO BIDCM 03/27/19 [History Last Taken Unknown] atorvastatin 10 mg tablet 10 mg PO QHS 03/12/21 [History Last Taken Unknown] clotrimazole 1 % topical cream 1 applic topical BID 2 weeks 03/12/21 [Rx Last Taken Unknown] desonide 0.05 % topical cream 1 applic topical BID 03/12/21 [History Last Taken Unknown] famotidine 20 mg tablet 20 mg PO DAILY 03/12/21 [History Last Taken Unknown] hydroxyzine pamoate 25 mg capsule 25 mg PO BID PRN Anxiety 03/12/21 [History Last Taken Unknown] metronidazole 0.75 % topical cream 1 applic topical DAILY 03/12/21 [History Last Taken Unknown] Allergy/AdvReac Type Severity Reaction Status Date / Time cephalexin monohydrate Allergy Unknown Verified 11/08/22 23:38 [From Keflex] ciprofloxacin AdvReac Pain in Verified 11/08/22 23:38 joints Surgical History H/O hernia repair Hx of tonsillectomy Social History Smoking Status: Former smoker EXAM Physical Exam Const Vital Signs: 12/02/23 18:27 12/02/23 19:27 12/02/23 21:00 Temperature 97.5 F L 97.6 F L Temperature Source Temporal Temporal Pulse Rate 72 64 Respiratory Rate 16 16 Blood Pressure 190/87 H 176/94 H 156/80 H Blood Pressure Mean 121 121 105 Pulse Ox 98 97 Oxygen Delivery Method Room Air Room Air Room Air MDM MDM MDM Narrative Medical decision making narrative: HISTORY OF PRESENT ILLNESS: 78-year-old male presents with headache. Notes this began approximately 4 hours prior to arrival. Acute onset of headache. He was throbbing behind his eyes has improved since onset. He notes he was outside mowing the grass. Notes his blood pressure was very elevated at this time REVIEW OF SYSTEMS: Pertinent positives: Headache Pertinent negatives: Chest pain, focal weakness, numbness, slurred PHYSICAL EXAM: Nursing triage notes reviewed, Vital signs reviewed Constitutional: please see mdm HENT: MMM Eyes: Pupils equal round and reactive to light, Extraocular muscles intact Neck: No stridor, no JVD, full neck ROM, no carotid bruits Lungs: Clear to auscultation, No wheezing or rales. No increased work of breathing, no conversational dyspnea, no accessory muscle use, no nasal flaring. No respiratory distress noted Heart: Regular rate and rhythm, No murmurs, No rubs and No gallops, 2+ distal pulses (radial, femoral, posterior tibial) in all extremities Abdomen: Soft, there is no tenderness, rigidity, rebound or guarding, no obvious peritoneal signs, no palpable pulsatile abdominal masses, no auscultated abdominal bruit : No CVAT Extremities: No edema Neuro: Alert and oriented x3, neuro exam at baseline, cranial nerves II through XII are intact. No pain with extraocular muscle movement. There is negative test of skew. 5 of 5 strength in upper and lower extremities in flexion extension. Intact sensation to light touch in upper and lower extremity dermatomes. No truncal or extremity ataxia. No dysdiadochokinesia. Normal gait. 2+ reflexes in upper and lower extremities. No meningeal signs. Negative Babinski. NIH of 0. Skin: No rash or lesions noted MEDICAL DECISION MAKING: Chief Complaint: Headache External records reviewed: Imaging reviewed: No recent Espinoza imaging of the brain Factors affecting care: Hypertension, type 2 diabetes, GERD, anxiety Social determinants of health: none History obtained from others: none Consults: none MDM Narrative: Patient was hemodynamically stable, afebrile and nontoxic-appearing. Physical exam without focal neurologic deficits. No carotid bruits. I considered the following differential diagnosis: ICH, subdural hematoma, migraine, meningitis, carotid artery dissection ALL IMAGES (IF OBTAINED) HAVE BEEN PERSONALLY REVIEWED AND INTERPRETED BY MYSELF. All CT scan of the head is negative for ICH or subarachnoid hemorrhage or other intracranial normality. The patient looks great and is in no significant objective discomfort currently. The patient's headache is non-specific. Exam is unremarkable. The patient is in no distress and the patient?s neurological exam is non-focal, neck is supple and without meningismus. The headache is not consistent with meningitis or infection, nor is it consistent with intracranial bleed (SAH etc.), carotid dissection, nor mass by history and examination. Medication and outpatient follow-up was instructed. The patient was instructed to return as needed or if symptoms changed or worsened, fever developed or inability to tolerate fluids. The patient agreed with plan. The patient and/or family, caregivers express understanding. The patient and/or family, caregivers agrees with the plan. Shared decision making: I will have a discussion with the patient and or visitors regarding risk/benefits of further testing or admission. They will be made aware of of the risk/benefits inherent in this decision they will be given the opportunity to voice understanding. Total critical care time today provided was at least 0 minutes. This excludes separately billable procedures. Critical care time (if documented) is secondary to the patient having high probability of clinically significant/life threatening deterioration in the patient's condition which required my urgent intervention. Impression: 1. Headache 2. Hypertension Dispo: Discharge home This note was generated with [employer] dictation software. It may contain incorrect words, spelling, and punctuation that were not noted in review of the chart prior to signing. Radiography Diagnostic Testing: Clinical Impression(s) from Imaging Studies Brain CT 12/02/23 19:34 IMPRESSION: Chronic involutional changes of the brain. Electronically Signed: Ramiro Tabares MD at 20:44 EDT , Discharge Plan Triage Chief Complaint: Headache ED Provider: Karlos Estrada Dx/Rx/DC Orders Instructions: ED Headache Unspecified Prescriptions: No Action metformin 500 MG tablet 500 mg PO DAILY omeprazole 20 MG capsule 20 mg PO BID aspirin 81 MG tablet,chewable 81 mg PO DAILY@0800 allopurinol 300 MG tablet 300 mg PO DAILY hydrochlorothiazide 25 MG tablet 12.5 mg PO DAILY lisinopril 40 MG tablet 40 mg PO DAILY lorazepam 0.5 MG tablet 0.5 mg PO TID PRN PRN (Reason: Anxiety) Qty: 20 0RF amlodipine 5 MG tablet 5 mg PO DAILY doxazosin [Cardura] 2 MG tablet 4 mg PO QHS gabapentin 300 MG capsule 300 mg PO BIDCM desonide 0.05 % Cream 1 applic TOPICAL BID atorvastatin 10 mg Tablet 10 mg PO QHS famotidine 20 mg Tablet 20 mg PO DAILY metronidazole 0.75 % Cream 1 applic TOPICAL DAILY hydroxyzine pamoate 25 mg Capsule 25 mg PO BID PRN (Reason: Anxiety) clotrimazole 1 % cream 1 applic topical BID 14 Days 0RF Primary Care Provider: [facility] Referrals: [facility] [Primary Care Provider] - Activity Restrictions/Additional Instructions: Thank you for trusting us with your care today! Your CT scan of the head was negative for signs of bleeding or acute life- threatening pathology. Please take Tylenol (2 pills, 650 mg), ibuprofen (2 pills, 400 mg) every 6 hours as needed for pain and fever control. Please return to the emergency department if your symptoms change or worsen. Specifically develop loss of vision, slurred speech, facial drooping, loss of movement or sensation in extremities Please follow with your primary care physician for further outpatient evaluation and management. Disposition Disposition: Home, Self Care
--- NOTE | 2023-12-02 19:34 | CT_ITS ---
STUDY: CT BRAIN WITHOUT CONTRAST REASON FOR EXAM: Male, 78 years old. Headache RADIATION DOSAGE (If Supplied By Facility): CTDIvol = ( 44.99 ) mGy, DLP = ( 796.11 ) mGycm TECHNIQUE: Transaxial CT imaging of the brain was performed without administration of intravenous contrast material. Individualized dose optimization techniques were used for this CT. COMPARISON: No relevant priors. FINDINGS: Normal soft tissue structures. Normal calvarium. There is mild cerebral atrophy with widening of the extra-axial spaces and ventricular dilatation. Normal white matter tracts of the cerebral hemispheres. There are small punctate calcifications of the basal ganglia which are seen in the aging brain as a normal variant. Normal brainstem. Normal cerebellum. There is no intracranial hemorrhage. There are no findings of an acute ischemic infarction. Normal visualized paranasal sinuses. CT/Brain/Head without Contrast IMPRESSION: Chronic involutional changes of the brain. Electronically Signed: Ramiro Tabares MD at 20:44 EDT ,
[2023-12-02 21:00] VITALS: BP 156/80; PULSE 64; RESP 16; TEMP 36.4; O2SAT 97
== END 2023-12-02 21:55 | disposition home or self-care (01) ==
PROVIDERS: Emergency Provider Emergency Medicine; Visit Provider Emergency Medicine
DX: R51.9 Headache, unspecified (principal); E11.9 Type 2 diabetes mellitus without complications; K21.9 Gastro-esophageal reflux disease without esophagitis; F41.9 Anxiety disorder, unspecified; I10 Essential (primary) hypertension; Z87.891 Personal history of nicotine dependence; Z79.899 Other long term (current) drug therapy; Z79.82 Long term (current) use of aspirin
CPT/HCPCS: 70450; 99282

== ENCOUNTER 2024-03-22 00:18 | Emergency (ER) | payer OTHER, SELFPAY ==
[2024-03-22 00:19] VITALS: BP 188/84; PULSE 75; RESP 20; TEMP 36.6; O2SAT 100; BMI 26.7
[2024-03-22] MEDS: Ondansetron 4 MG/2 ML Vial IV (00:57)
[2024-03-22] MEDS: 0.9% Normal Saline (1000mL) 1,000 ML 999 ML IV (00:57)
[2024-03-22] MEDS: Ketorolac 15 MG/ML Vial IV (00:57)
[2024-03-22 01:10] LABS: Absolute Lymphocyte Count 2.13 X10^3/uL (0.83-4.51); Absolute Neutrophil Count 3.8 X10^3/uL (2.0-7.7); Basophil# 0.05 X10^3/uL; Basophil% 0.7 % (0-1); Eosinophil# 0.28 X10^3/uL; Eosinophils% 3.9 % (0-5); Hematocrit 38.4 % (40-54); Hemoglobin 13.3 g/dL (13.0-16.5); Lymphocyte # 2.13 X10^3/ul (0.83-4.51); Lymphocyte % 29.8 % (19-41); Mean Corp Hgb Conc 34.6 g/dL (32-36); Mean Corpuscular Hgb 31.6 pg (27.0-32.0); Mean Corpuscular Volume 91.2 fL (80-94); Monocyte# 0.91 X10^3/uL; Monocyte% 12.7 % (0-10); NRBC Flagged by Analyzer 0 % (0-5); Neutrophil # 3.76 X10^3/uL (2.7-7.7); Neutrophil % 52.6 % (47-70); Platelet Count 197 K/mm3 (150-450); RBC Distribution Width CV 12.1 % (11.6-14.6); RBC Distribution Width SD 40.4 fl (35.1-43.9); Red Blood Count 4.21 M/mm3 (4.6-6.2); White Blood Count 7.2 K/mm3 (4.4-11.0)
[2024-03-22 01:28] LABS: AST(SGOT) 18 U/L (15-37); Alanine Aminotransfer ALT/SGPT 22 U/L (16-61); Albumin, Serum 3.8 g/dL (3.2-5.0); Alkaline Phosphatase 65 U/L (45-117); Anion Gap 6 (5-15); BUN 23 mg/dL (7-18); BUN/Creat Ratio 14.3 RATIO (10-20); Calcium,Total 8.9 mg/dL (8.5-10.1); Chloride 101 mmol/L (98-107); Creatinine, Serum 1.61 mg/dL (0.70-1.30); EST Glomerular Filtration Rate 44 mL/min (>60); Est Glom Filt Rate - Afr Amer 54 mL/min (>60); Estimated Creatinine Clearance 32.89 ml/min; Globulin 2.8 g/dL (2.2-4.2); Glucose 146 mg/dL (74-106); Lipase 52 U/L (13-75); Potassium 4.6 mmol/L (3.5-5.1); Protein, Total 6.6 g/dL (6.4-8.2); Sodium Level 135 mmol/L (136-145)
--- NOTE | 2024-03-22 01:44 | EDS_ITS ---
HPI History of Present Illness Chief Complaint: General Illness Informant: patient Narrative Narrative: Patient is a 78-year-old male with past medical history of hypertension and [id number] diabetes. He reports that this evening roughly 6 hours ago he made dinner for him and his and they were eating. He states he did not notice any abnormalities while he was eating but his stated that there was something black in the mashed potatoes. He states that shortly after this observation he began to develop abdominal discomfort with nausea and a headache. He states he could not sleep secondary to his symptoms and therefore comes in for evaluation [facility] Medical History (Updated 03/23/24 @ 01:[address] Luis Armando Galeano, DO) Anxiety Diabetes Kidney disease GERD (gastroesophageal reflux disease) Hypertension Home Medications ?Medication ?Instructions ?Recorded ?Last Taken ?Type allopurinol 300 mg tablet 300 mg PO DAILY 03/15/15 Unknown History aspirin 81 mg chewable tablet 81 mg PO DAILY@0800 03/15/15 09/11/17 History hydrochlorothiazide 25 mg tablet 12.5 mg PO DAILY 03/15/15 Unknown History lisinopril 40 mg tablet 40 mg PO DAILY 03/15/15 09/17/17 06:00 History 40 MG lorazepam 0.5 mg tablet 0.5 mg PO TID PRN PRN Anxiety #20 03/15/15 Unknown Rx tabs metformin 500 mg tablet 500 mg PO DAILY 03/15/15 Unknown History omeprazole 20 mg capsule,delayed 20 mg PO BID 03/15/15 09/17/17 06:00 History release 20 MG amlodipine 5 mg tablet 5 mg PO DAILY 09/15/17 09/17/17 06:00 History 5 MG doxazosin 2 mg tablet (Cardura) 4 mg PO QHS 09/15/17 Unknown History gabapentin 300 mg capsule 300 mg PO BIDCM 03/27/19 Unknown History atorvastatin 10 mg tablet 10 mg PO QHS 03/12/21 Unknown History clotrimazole 1 % topical cream 1 applic topical BID 2 weeks 03/12/21 Unknown Rx desonide 0.05 % topical cream 1 applic topical BID 03/12/21 Unknown History famotidine 20 mg tablet 20 mg PO DAILY 03/12/21 Unknown History hydroxyzine pamoate 25 mg capsule 25 mg PO BID PRN Anxiety 03/12/21 Unknown History metronidazole 0.75 % topical cream 1 applic topical DAILY 03/12/21 Unknown History ondansetron 4 mg disintegrating 4 mg PO TID PRN nausea and 03/22/24 Unknown Rx tablet vomiting #21 tabs Allergy/AdvReac Type Severity Reaction Status Date / Time cephalexin monohydrate (From Allergy Unknown Verified 03/22/24 00:19 Keflex) ciprofloxacin AdvReac Pain in Verified 03/22/24 00:19 joints Surgical History Hx of tonsillectomy H/O hernia repair Social History Smoking Status: Former smoker ROS ROS ED Constitutional Constitutional ED: Denies chills or fever(s) Eyes Eyes: Denies blurry vision or change in vision ENT ENT ED: Denies sore throat Cardiovascular Cardiovascular: Denies chest pain Respiratory/Chest Respiratory/Chest: Denies cough or dyspnea Gastrointestinal Gastrointestinal: Reports abdominal pain and nausea; Denies diarrhea or vomiting Genitourinary Genitourinary ED: Denies dysuria Musculoskeletal Musculoskeletal: Denies myalgias Integumentary Denies rash Neurologic Neurologic: Reports headache(s) Hematologic/Lymphatic Hematologic/Lymphatic: Denies easy bleeding or easy bruising EXAM Physical Exam Const Vital Signs: 03/22/24 02:18 03/22/24 02:21 Temperature 98.7 F Pulse Rate 72 66 Respiratory Rate 16 16 Blood Pressure 157/76 H 157/76 H Blood Pressure Mean 103 103 Pulse Ox 97 97 Oxygen Delivery Method Room Air Positive well nourished and well developed General Appearance ED: well developed; Negative for pallor HEENT Reports moist mucous membranes HEENT Narrative: No tongue or lip swelling no oral lesions no airway edema or compromise No signs of infection noted in the posterior pharynx Eyes PERRL and EOMs intact bilaterally General Eye ED: Negative for scleral icterus Neck supple Neck Narrative: No nuchal rigidity or meningeal signs Resp normal respiratory effort and clear to auscultation bilaterally Cardio regular rate and regular rhythm Rate: other Other Details: Heart is regular rate and rhythm Radial and carotid pulses are equal and symmetric GI non-distended and no masses GI Narrative: Abdomen is soft and nondistended with hyperactive bowel sounds. There is mild diffuse pain with palpation without voluntary guarding or rigidity or pulsatile mass Auscultation: hyperactive bowel sounds Palpation: soft Back/Spine no CVA tenderness Extremity normal to inspection Neuro oriented x3, CN's II-XII intact bilaterally and no sensory deficits noted Sensorium / Orientation: alert Motor Exam: strength 5/5 throughout Psych Psych Narrative: Patient has a nervous/anxious affect Skin no rashes or lesions noted General Skin Exam: Negative for jaundice or pallor MDM MDM MDM Narrative Medical decision making narrative: Patient arrived to the ER hypertensive but otherwise with stable vitals. He reported developing generalized abdominal comfort with nausea and headache after eating and reported there was a potential contamination of the food. There is concern for food poisoning but he is not having bouts of diarrhea. Also potential for gastroenteritis secondary to [place] virus or rotavirus. Patient could also have viral syndrome secondary to COVID versus influenza versus RSV. There is still potential for biliary colic or acute cholecystitis or pancreatitis. With his past medical history of diabetes there is also concern for potential DKA. Therefore basic labs were obtained with a viral swab. I do not feel need for a CT scan based on his history and exam. Labs revealed slightly elevated creatinine which is near patient's baseline. Otherwise liver enzymes are normal going against biliary colic or acute cholecystitis lipase is also normal going against pancreatitis and patient does not have elevation of his anion gap or decrease to his carbon dioxide going against DKA. Viral swab was also negative going against COVID influenza or RSV. I do feel symptoms are most likely viral in nature which are exacerbated by the patient's concern that he may have ingested a foreign substance but as overall workup is negative and he reports improvement of symptoms with medication provided in the ER and his abdomen remains soft and nonsurgical he is otherwise safe for discharge History & Record Review Discussion w/independent historian: Patient Lab Data Attestation: I reviewed the patient's lab results. Labs: Laboratory Results - last 24 hr 03/22/24 00:59 WBC 7.2 RBC 4.21 L Hgb 13.3 Hct 38.4 L MCV 91.2 MCH 31.6 MCHC 34.6 RDW Std Deviation 40.4 RDW Coeff of Hieu 12.1 Plt Count 197 MPV 10.0 Immature Gran % (Auto) 0.300 Neut % (Auto) 52.6 Lymph % (Auto) 29.8 [place] % (Auto) 12.7 H Eos % (Auto) 3.9 Baso % (Auto) 0.7 Absolute Neuts (auto) 3.8 Absolute Lymphs (auto) 2.13 Nucleated RBC % 0 Sodium 135 L Potassium 4.6 Chloride 101 Carbon Dioxide 28.0 Anion Gap 6 BUN 23 H Creatinine 1.61 H Estim Creat Clear Calc 32.89 Est GFR (MDRD) Af Amer 54 L Est GFR (MDRD) Non-Af 44 L BUN/Creatinine Ratio 14.3 Glucose 146 H Calcium 8.9 Total Bilirubin 0.40 Direct Bilirubin 0.20 AST 18 ALT 22 Alkaline Phosphatase 65 Total Protein 6.6 Albumin 3.8 Globulin 2.8 Lipase 52 Discharge Plan Triage Chief Complaint: General Illness ED Provider: Luis Armando Galeano Dx/Rx/DC Orders Clinical Impression: Nausea, Cephalgia, Chronic renal insufficiency, Hypertension Instructions: ED Viral Syndrome (Adult) Prescriptions: New ondansetron 4 mg tablet,disintegrating 4 mg PO TID PRN (Reason: nausea and vomiting) Qty: 21 0RF No Action metformin 500 MG tablet 500 mg PO DAILY omeprazole 20 MG capsule 20 mg PO BID aspirin 81 MG tablet,chewable 81 mg PO DAILY@0800 allopurinol 300 MG tablet 300 mg PO DAILY hydrochlorothiazide 25 MG tablet 12.5 mg PO DAILY lisinopril 40 MG tablet 40 mg PO DAILY lorazepam 0.5 MG tablet 0.5 mg PO TID PRN PRN (Reason: Anxiety) Qty: 20 0RF amlodipine 5 MG tablet 5 mg PO DAILY doxazosin [Cardura] 2 MG tablet 4 mg PO QHS gabapentin 300 MG capsule 300 mg PO BIDCM desonide 0.05 % Cream 1 applic TOPICAL BID atorvastatin 10 mg Tablet 10 mg PO QHS famotidine 20 mg Tablet 20 mg PO DAILY metronidazole 0.75 % Cream 1 applic TOPICAL DAILY hydroxyzine pamoate 25 mg Capsule 25 mg PO BID PRN (Reason: Anxiety) clotrimazole 1 % cream 1 applic topical BID 14 Days 0RF [facility] Provider[facility] - Activity Restrictions/Additional Instructions: Your workup today revealed no clinically significant laboratory findings. I feel your symptoms are related to a viral infection which will clear spontaneously over the next 1 to 3 days. Continue all of your home medication as directed by your doctor and had the Zofran for nausea control if needed. Return to the ER should you have any further concerns Print Language: Bulgarian Disposition Disposition: Home, Self Care Discharge Date/Time: 03/22/24 02:24
[2024-03-22 02:18] VITALS: BP 157/76; PULSE 72; RESP 16; O2SAT 97
[2024-03-22 02:21] VITALS: BP 157/76; PULSE 66; RESP 16; TEMP 37.1; O2SAT 97
== END 2024-03-22 02:24 | disposition home or self-care (01) ==
PROVIDERS: Emergency Provider Emergency Medicine; Visit Provider Emergency Medicine
DX: R11.0 Nausea (principal); E11.22 Type 2 diabetes mellitus with diabetic chronic kidney disease; N18.9 Chronic kidney disease, unspecified; I12.9 Hypertensive chronic kidney disease with stage 1 through stage 4 chronic kidney disease, or unspecified chronic kidney disease; R51.9 Headache, unspecified; Z87.891 Personal history of nicotine dependence; Z79.82 Long term (current) use of aspirin; Z79.899 Other long term (current) drug therapy; F41.9 Anxiety disorder, unspecified; Z79.84 Long term (current) use of oral hypoglycemic drugs; K21.9 Gastro-esophageal reflux disease without esophagitis
CPT/HCPCS: 80048; 80076; 83690; 85025; 87631; 96361; 96374; 96375; 99283; J7030; A4216; J2405

== ENCOUNTER 2025-07-04 11:08 | Emergency (ER) | payer OTHER, SELFPAY ==
[2025-07-04 11:09] VITALS: BP 158/75; PULSE 81; RESP 16; TEMP 36.6; O2SAT 98; BMI 25.7
--- NOTE | 2025-07-04 11:38 | RAD_ITS ---
PROCEDURE: CHEST PA AND LATERAL 07/04/2025 REASON FOR EXAM: COUGH TECHNIQUE: Procedure Code: RADCXR Modality: DX Procedure: CHEST PA AND LATERAL COMPARISON: Chest two views FINDINGS: Heart size and mediastinal configuration are within normal limits. There is no focal infiltrate or consolidation. There is no pneumothorax or effusion. There is no acute bony abnormality. Aortic calcifications are noted. RAD/Chest PA and Lateral IMPRESSION: No acute process is identified in the chest. Reading Location: [facility]
--- NOTE | 2025-07-04 11:59 | ED.VIS.DYS ---
HPI History of Present Illness Chief Complaint: Cough Informant: patient Narrative Narrative: 79-year-old male presenting to the emergency room with continued cough. Patient states that on he came home from family's house. He took a nap when he woke he had pain on the left side of his throat up to his ear. That lasted several hours and resolved by the next morning he states that he felt like he was becoming ill. He states he had cough congestion. Few days later after using some [place] cold and some Delsym cough and congestion he went to urgent care and was given an dose of azithromycin and inhaler. States he has completed the azithromycin and continues to have cough and congestion. He denies any known fevers. He called his primary care doctor at the [facility] but was unable to secure an appointment today so he came to emergency. He denies any known lung conditions. He does note that he is a former smoker. [facility] Medical History Former smoker Anxiety Diabetes Kidney disease GERD (gastroesophageal reflux disease) Hypertension Home Medications ?Medication ?Instructions ?Recorded ?Last Taken ?Type allopurinol 300 mg tablet 150 mg PO DAILY 03/15/15 07/04/25 History lisinopril 40 mg tablet 40 mg PO DAILY 03/15/15 07/04/25 History metformin 500 mg tablet 500 mg PO BID 03/15/15 07/04/25 History omeprazole 20 mg capsule,delayed 40 mg PO BID 03/15/15 07/04/25 History release gabapentin 300 mg capsule 300 mg PO DAILY 03/27/19 07/04/25 History atorvastatin 10 mg tablet 10 mg PO QHS 03/12/21 07/03/25 History famotidine 20 mg tablet 20 mg PO DAILY 03/12/21 07/04/25 History albuterol sulfate 90 mcg/actuation 2 puff inhalation Q4H PRN PRN 07/04/25 Unknown History aerosol inhaler wheezing amlodipine 2.5 mg tablet 7.5 mg PO DAILY 07/04/25 07/04/25 History azithromycin 250 mg tablet 250 mg PO DAILY 07/04/25 07/03/25 History carvedilol 3.125 mg tablet 3.125 mg PO BID 07/04/25 07/04/25 History doxazosin 4 mg tablet (Cardura) 4 mg PO QHS 07/04/25 07/03/25 History doxycycline monohydrate 100 mg 100 mg PO BID #14 CAPSULES 07/04/25 Unknown Rx capsule ezetimibe 10 mg tablet 10 mg PO DAILY 07/04/25 07/04/25 History finasteride 5 mg tablet 5 mg PO DAILY 07/04/25 07/04/25 History gabapentin 300 mg capsule 600 mg PO QPM 07/04/25 07/03/25 History mecobalamin (vitamin B12) 1 inocente PO DAILY 07/04/25 07/04/25 History methylprednisolone 4 mg tablets in See Rx Instructions PO .COMPLEX 07/04/25 Unknown Rx a dose pack (Medrol ([place])) #21 tabs rosuvastatin 20 mg tablet (Crestor) 20 mg PO DAILY 07/04/25 07/03/25 History Allergy/AdvReac Type Severity Reaction Status Date / Time cephalexin monohydrate (From Allergy Unknown Verified 07/04/25 11:09 Keflex) ciprofloxacin AdvReac Pain in Verified 07/04/25 11:09 joints Surgical History Hx of tonsillectomy H/O hernia repair Social History Smoking Status: Former smoker ROS ROS ED Constitutional Constitutional ED: Denies chills, fever(s) or weight loss Eyes Eyes: Denies change in vision or diplopia ENT ENT ED: Reports ear pain, rhinorrhea and sore throat Cardiovascular Cardiovascular: Denies chest pain, orthopnea, palpitations or racing heartbeat Respiratory/Chest Respiratory/Chest: Reports cough and sputum; Denies dyspnea or orthopnea Gastrointestinal Gastrointestinal: Denies abdominal pain, diarrhea, nausea or vomiting Genitourinary Genitourinary ED: Denies dysuria, hematuria or urinary frequency Musculoskeletal Musculoskeletal: Denies arthralgias or myalgias Integumentary Denies abscess or rash Neurologic Neurologic: Denies headache(s) or weakness Psychiatric Psychiatric: Denies anxiety, depression, suicidal ideation or suicidal thoughts Endocrine Endocrinology: Denies polydipsia, polyphagia or polyuria Allergic/Immunologic Allergic/Immunologic ED: Denies mouth swelling, tongue swelling or urticaria EXAM Physical Exam Const Vital Signs: 07/04/25 11:09 07/04/25 11:15 07/04/25 12:24 Temperature 97.8 F 97.8 F Temperature Source Temporal Pulse Rate 81 65 Respiratory Rate 16 18 Blood Pressure 158/75 H 146/77 H Blood Pressure Mean 102 100 Pulse Ox 98 94 Oxygen Delivery Method Room Air Room Air MDM MDM MDM Narrative Medical decision making narrative: Differential diagnosis includes bronchitis bronchospasm pneumonia pleural effusion congestive heart failure respiratory viral illness Patient is not hypoxic. He has no increased work of breathing. My independent interpretation of the chest x-ray is no acute process. Clinically this appears to be bronchitis. Will have him continue to use his inhaler. We talked about using a steroid. He has concerns about prednisone because he had concerns with difficulty with sleep. He is willing to try some Medrol. Patient will be prescribed doxycycline for 7 days. Follow-up with PCP 1 week if not improved. We discussed whether or not this was viral or bacterial. I still think there is a good chance this could be viral but given how rhonchorous his lung sounds are bilaterally I think it is reasonable to try doxycycline. History & Record Review Discussion w/independent historian: Patient Radiography Diagnostic Testing: Clinical Impression(s) from Imaging Studies Chest X-Ray 07/04/25 11:38 IMPRESSION: No acute process is identified in the chest. Reading [id number] Dis[facility] Triage Chief Complaint: Cough ED Provider: Ayan Young Dx/Rx/DC Orders Clinical Impression: Bronchitis Instructions: Acute Bronchitis Prescriptions: New doxycycline monohydrate 100 mg capsule 100 mg PO BID Qty: 14 0RF methylprednisolone [Medrol ([place])] 4 mg tablets,dose pack See Rx Instructions .ROUTE .COMPLEX Qty: 21 0RF Rx Instructions: for 6 days No Action metformin 500 MG tablet 500 mg PO BID omeprazole 20 MG capsule 40 mg PO BID allopurinol 300 MG tablet 150 mg PO DAILY lisinopril 40 MG tablet 40 mg PO DAILY gabapentin 300 MG capsule 300 mg PO DAILY Patient Comments: 1 AM AND 2 PM atorvastatin 10 mg Tablet 10 mg PO QHS famotidine 20 mg Tablet 20 mg PO DAILY azithromycin 250 mg tablet 250 mg PO DAILY albuterol sulfate 90 mcg/actuation HFA aerosol inhaler 2 puff inhalation Q4H PRN PRN (Reason: wheezing) amlodipine 2.5 mg tablet 7.5 mg PO DAILY doxazosin [Cardura] 4 mg tablet 4 mg PO QHS gabapentin 300 mg capsule 600 mg PO QPM Patient Comments: 1AM AND 2PM mecobalamin (vitamin B12) 1 inocente PO DAILY carvedilol 3.125 mg tablet 3.125 mg PO BID Rx Instructions: must administer with a meal/food ezetimibe 10 mg tablet 10 mg PO DAILY rosuvastatin [Crestor] 20 mg tablet 20 mg PO DAILY finasteride 5 mg tablet 5 mg PO DAILY [facility] [Primary Care Provider, None] - 1 Week if not improving Print Language: Indonesian
[2025-07-04 12:24] VITALS: BP 146/77; PULSE 65; RESP 18; TEMP 36.6; O2SAT 94
== END 2025-07-04 12:40 | disposition home or self-care (01) ==
LOC: ED 11:41
PROVIDERS: Emergency Provider Emergency Medicine; Visit Provider Emergency Medicine
DX: J40 Bronchitis, not specified as acute or chronic (principal); E11.9 Type 2 diabetes mellitus without complications; Z87.891 Personal history of nicotine dependence; K21.9 Gastro-esophageal reflux disease without esophagitis; I10 Essential (primary) hypertension; Z79.899 Other long term (current) drug therapy; Z79.84 Long term (current) use of oral hypoglycemic drugs
CPT/HCPCS: 71046; 99282